=== PATIENT | male | born 2000 | race Hispanic/Latino ===

== ENCOUNTER 2019-04-03 04:22 | Emergency (ER) | payer SELFPAY ==
[2019-04-03] MEDS ORDERED: Acetaminophen 500 MG TAB ONE (04:36)
[2019-04-03] MEDS ORDERED: Ibuprofen 800 MG TAB ONE (04:36)
[2019-04-03] MEDS ORDERED: Ondansetron ODT 4 MG TAB ONE (04:36)
[2019-04-03] MEDS ORDERED: Dexamethasone 10 MG/ML VIAL ONE (05:04)
--- NOTE | 2019-04-03 08:10 | RAD ---
TWO VIEWS OF THE CHEST: COMPARISON: 03/17/2015. HISTORY: Cough. FINDINGS: Two views of the chest show normal sized cardiomediastinal silhouette. There is no evidence of consol idation, mass, or pleural effusion. The bones are unremarkable. IMPRESSION: No evidence of acute cardiopulmonary disease. POS: [facility]
== END 2019-04-03 05:11 | disposition home or self-care (01) ==
LOC: ERS 04:22
DX: J02.9 Acute pharyngitis, unspecified (principal); E66.9 Obesity, unspecified; J45.909 Unspecified asthma, uncomplicated
CPT/HCPCS: 71046; 87081; 87430; J1100; Q0162